=== PATIENT | male | born 1995 | race Hispanic/Latino ===

== ENCOUNTER 2018-10-31 09:31 | Emergency (ER) | payer OTHER ==
[2018-10-31 10:26] LABS: APPEARANCE,URINE Clear (CLEAR); BILIRUBIN,URINE Negative (NEGATIVE); COLOR,URINE Yellow (YELLOW); GLUCOSE, URINE (UA) Negative (NEGATIVE); KETONES,URINE Negative (NEGATIVE); LEUKOCYTE ESTERASE ,URINE Moderate (NEGATIVE); NITRATE,URINE Negative (NEGATIVE); OCCULT BLOOD,URINE Negative (NEGATIVE); PH,URINE 8.5 (5.0-8.0); PROTEIN,URINE Negative (NEGATIVE)
[2018-10-31 10:47] LABS: BACTERIA,URINE Rare /HPF (None Seen); MUCUS,URINE Few LPF (None Seen); RBC,URINE None Seen /HPF (0-1); SQUAMOUS EPITHELIAL CELL,UR Few /HPF (0-2)
== END 2018-10-31 11:05 | disposition home or self-care (01) ==
LOC: EDH 09:31
DX: M54.5 Low back pain (principal); Z87.442 Personal history of urinary calculi
CPT/HCPCS: 81001

== ENCOUNTER → 2019-02-19 | Outpatient (CLI) | payer OTHER | END | disposition home or self-care (01) | LOC: RAH 07:42 | PROVIDERS: ATTEND Family Medicine | DX: K76.0 Fatty (change of) liver, not elsewhere classified (principal); N20.0 Calculus of kidney; N28.1 Cyst of kidney, acquired; I70.90 Unspecified atherosclerosis | CPT/HCPCS: 74150 ==

== ENCOUNTER → 2019-03-05 | Outpatient (CLI) | payer OTHER ==
[2019-03-05 10:22] LABS: BASOPHILS % (AUTO) 0.8 % (0.0-5.0); EOSINOPHILS % (AUTO) 0.7 % (0.0-8.0); HEMATOCRIT 44.7 % (42-54); LYMPHOCYTES % (AUTO) 16.6 % (21.0-51.0); MEAN CORPUSCULAR HEMOGLOBIN 31.9 pg (27.0-33.0); MEAN CORPUSCULAR HGB CONC 34.7 g/dL (32.0-36.0); MEAN CORPUSCULAR VOLUME 91.9 fL (79-99); MONOCYTES % (AUTO) 9.4 % (3.0-13.0); NEUTROPHILS % (AUTO) 72.5 % (40.0-77.0); PLATELET COUNT (AUTO) 246 K/uL (130-400); RED BLOOD CELL COUNT(AUTO) 4.86 MIL/uL (4.50-6.20); RED CELL DISTRIBUTION WIDTH 13.3 % (11.0-15.5); WHITE BLOOD COUNT (AUTO) 10.8 K/uL (4.8-10.8)
[2019-03-05 10:23] LABS: APPEARANCE,URINE Clear (CLEAR); BILIRUBIN,URINE Negative (NEGATIVE); COLOR,URINE Yellow (YELLOW); GLUCOSE, URINE (UA) Negative (NEGATIVE); KETONES,URINE Negative (NEGATIVE); LEUKOCYTE ESTERASE ,URINE Moderate (NEGATIVE); NITRATE,URINE Negative (NEGATIVE); OCCULT BLOOD,URINE Negative (NEGATIVE); PH,URINE 7.5 (5.0-8.0); PROTEIN,URINE Negative (NEGATIVE)
[2019-03-05 10:29] LABS: HEMOGLOBIN A1C 5.1 % (4.0-6.0)
[2019-03-05 10:34] LABS: BACTERIA,URINE Few /HPF (None Seen); RBC,URINE None Seen /HPF (0-1); TRICHOMONAS,URINE Moderate /LPF (None Seen)
[2019-03-05 10:49] LABS: BILIRUBIN,TOTAL 0.6 mg/dL (0.2-1.0); CREATININE 0.8 mg/dL (0.5-1.5); POTASSIUM 4.7 mmol/L (3.5-5.1); THYROID STIMULATING HORMONE 0.99 uIU/mL (0.36-3.74); TOTAL PROTEIN, SERUM 7.9 g/dL (6.0-8.3)
== END | disposition home or self-care (01) ==
LOC: LAB 09:12
PROVIDERS: ATTEND Nurse Practitioner Adult Health
DX: Z00.00 Encounter for general adult medical examination without abnormal findings (principal)
CPT/HCPCS: 36415; 80053; 80061; 81001; 83036; 83690; 84443; 85025; 87486; 87797

== ENCOUNTER → 2019-03-19 | Outpatient (CLI) | payer OTHER | END | disposition home or self-care (01) | LOC: RAH 07:53 | PROVIDERS: ATTEND Internal Medicine Gastroenterology | DX: K76.0 Fatty (change of) liver, not elsewhere classified (principal); N28.1 Cyst of kidney, acquired | CPT/HCPCS: 76700 ==

== ENCOUNTER 2019-05-03 08:00 | Emergency (ER) | payer OTHER ==
[2019-05-03 08:35] LABS: RAPID GROUP A STREP NEGATIVE (NEGATIVE)
[2019-05-03] MEDS ORDERED: DiphenhydrAMINE HCL 50 MG/ML VIAL ONE (09:31)
[2019-05-03] MEDS ORDERED: KETOROLAC TROMETHAMINE 30MG/ML ONE (09:31)
[2019-05-03] MEDS ORDERED: AZITHROMYCIN 250 MG TABLET PO ONE (09:31)
[2019-05-03] MEDS ORDERED: SODIUM CHLORIDE 0.9% 1000ML 1,000 ML IV ONE (09:32)
== END 2019-05-03 10:31 | disposition home or self-care (01) ==
LOC: EDH 08:00
DX: J02.9 Acute pharyngitis, unspecified (principal); R50.9 Fever, unspecified; R19.7 Diarrhea, unspecified; Z87.442 Personal history of urinary calculi; Z72.0 Tobacco use
CPT/HCPCS: 87804 ×2; 87880; 96361; 96374; 96375; 99284; J1200; J1885; J7030

== ENCOUNTER 2019-10-24 00:19 | Emergency (ER) | payer OTHER ==
[2019-10-24] MEDS ORDERED: DEXAMETHASONE SOD PHOSPHATE 10MG/ML 1ML VIAL ONE (00:48)
[2019-10-24] MEDS ORDERED: LIDOCAINE HCL-MPF 1% 2ML VIAL ONE (00:48)
[2019-10-24] MEDS ORDERED: CEFTRIAXONE SODIUM 1 GM ONE (00:48)
== END 2019-10-24 01:29 | disposition home or self-care (01) ==
LOC: EDH 00:19
DX: J02.9 Acute pharyngitis, unspecified (principal)
CPT/HCPCS: 96372 ×2; 99284; J0696; J1100; J3490

== ENCOUNTER 2019-11-15 15:52 | Emergency (ER) | payer OTHER ==
[2019-11-15 16:23] LABS: APPEARANCE,URINE SL CLOUDY (CLEAR); BILIRUBIN,URINE NEGATIVE (NEGATIVE); COLOR,URINE YELLOW (YELLOW); GLUCOSE, URINE (UA) NEGATIVE (NEGATIVE); KETONES,URINE NEGATIVE (NEGATIVE); LEUKOCYTE ESTERASE ,URINE NEGATIVE (NEGATIVE); NITRATE,URINE NEGATIVE (NEGATIVE); OCCULT BLOOD,URINE NEGATIVE (NEGATIVE); PH,URINE 7.5 (5.0-8.0); PROTEIN,URINE NEGATIVE (NEGATIVE)
[2019-11-15 16:40] LABS: AMORPHOUS SEDIMENT,UR Many /LPF (None Seen); BACTERIA,URINE Few /HPF (None Seen); MUCUS,URINE Moderate LPF (None Seen); SQUAMOUS EPITHELIAL CELL,UR Moderate /HPF (0-2)
[2019-11-15 16:50] LABS: AMPHET/METH SCREEN,URINE NEGATIVE (NEGATIVE); BARBITURATE SCREEN, URINE NEGATIVE (NEGATIVE); BENZODIAZEPINES SCREEN,URINE POSITIVE (NEGATIVE); CANNABINOID SCREEN,URINE POSITIVE (NEGATIVE); COCAINE SCREEN,URINE NEGATIVE (NEGATIVE); OPIATE SCREEN,URINE NEGATIVE (NEGATIVE); PHENCYCLIDINE SCREEN,URINE NEGATIVE (NEGATIVE)
[2019-11-15] MEDS ORDERED: SODIUM CHLORIDE 0.9% 1000ML 1,000 ML IV ONE (17:44)
[2019-11-15 17:50] LABS: BASOPHILS % (AUTO) 0.4 % (0.0-5.0); EOSINOPHILS % (AUTO) 1.1 % (0.0-8.0); HEMATOCRIT 42.2 % (42-54); LYMPHOCYTES % (AUTO) 20.7 % (21.0-51.0); MEAN CORPUSCULAR HEMOGLOBIN 31.6 pg (27.0-33.0); MEAN CORPUSCULAR HGB CONC 35.5 g/dL (32.0-36.0); MEAN CORPUSCULAR VOLUME 88.8 fL (79-99); NEUTROPHILS % (AUTO) 67.4 % (40.0-77.0); PLATELET COUNT (AUTO) 268 K/uL (130-400); RED BLOOD CELL COUNT(AUTO) 4.75 MIL/uL (4.50-6.20); RED CELL DISTRIBUTION WIDTH 12.2 % (11.0-15.5); WHITE BLOOD COUNT (AUTO) 10.8 K/uL (4.8-10.8)
[2019-11-15 18:03] LABS: CARBON DIOXIDE 29 mmol/L (21-32); CHLORIDE 100 mmol/L (101-111); CREATININE 0.7 mg/dL (0.5-1.5); GLOMERULAR FILTR. RATE CALC 146 mL/min (>60); GLUCOSE,RANDOM 101 mg/dL (70-105); POTASSIUM 3.6 mmol/L (3.5-5.1); SODIUM SERUM 136 mmol/L (136-145); UREA NITROGEN, BLOOD 13 mg/dL (7-18)
[2019-11-15 18:08] LABS: ALANINE AMINOTRANSFERASE 43 U/L (12-78); ALCOHOL, BLOOD < 3 mg/dL (0-10); ASPARTATE AMINOTRANSFERASE 26 U/L (10-37); BILIRUBIN,TOTAL 0.9 mg/dL (0.2-1.0); CREATINE KINASE, TOTAL 160 U/L (21-232); TOTAL PROTEIN, SERUM 7.9 g/dL (6.0-8.3)
== END 2019-11-15 20:05 | disposition home or self-care (01) ==
LOC: EDH 15:52
DX: G40.89 Other seizures (principal); F12.10 Cannabis abuse, uncomplicated; T42.4X5A Adverse effect of benzodiazepines, initial encounter; Y92.89 Other specified places as the place of occurrence of the external cause
CPT/HCPCS: 36415; 71045; 80053; 80305; 81001; 82550; 84484; 85025; 93005; 99285; G0480; J7030

== ENCOUNTER 2021-07-17 13:01 | Emergency (ER) | payer OTHER ==
[~2021-07-17] VITALS: Ht 180.3 cm; Wt 102.1 kg
[2021-07-17 13:04] VITALS: BP 132/87
[2021-07-17] MEDS ORDERED: IBUPROFEN 600 MG TABLET PO STA (14:36)
[2021-07-17] MEDS ORDERED: TETANUS/DIPHTHERIA TOXOID [ADULT] 0.5 ML VIAL IM STA (14:36)
[2021-07-17] MEDS ORDERED: AMOX/CLAV 875/125MG TAB PO STA (14:36)
[2021-07-17] MEDS ORDERED: IBUP-2088 PO (14:45)
[2021-07-17] MEDS ORDERED: AMOX-429 PO (14:45)
== END 2021-07-17 14:56 | disposition home or self-care (01) ==
LOC: EDH 13:01
DX: S61.551A Open bite of right wrist, initial encounter (principal); W54.0XXA Bitten by dog, initial encounter; Z79.1 Long term (current) use of non-steroidal anti-inflammatories (NSAID); Y93.89 Activity, other specified; Y92.89 Other specified places as the place of occurrence of the external cause; Y99.8 Other external cause status
CPT/HCPCS: 90471; 90714

== ENCOUNTER → 2022-10-23 | Emergency (ER) | payer OTHER ==
[~2022-10-23] VITALS: Ht 180.3 cm; Wt 99.8 kg
[~2022-10-23] MED LIST: AMOX-429 PO; IBUP-2088 PO
[2022-10-23 19:00] VITALS: BP 128/85
== END | disposition left against medical advice (07) ==
LOC: EDH 18:24
DX: R51.9 Headache, unspecified (principal); Z53.21 Procedure and treatment not carried out due to patient leaving prior to being seen by health care provider

== ENCOUNTER 2025-02-06 02:34 | Emergency (ER) | payer SELFPAY ==
[~2025-02-06] VITALS: Ht 180.3 cm; Wt 104.3 kg
[2025-02-06] MEDS ORDERED: PRED50TA2 PO (03:13)
[2025-02-06] MEDS ORDERED: CYCL10TA16 PO (03:13)
--- NOTE | 2025-02-06 03:13 | ERN ---
General Chief Complaint: Low Back Pain/Injury Stated Complaint: BACK PAIN Time Seen by MD: 02:42 Source: patient History of Present Illness Initial Comments Patient is a 29-year-old male who has a radiculopathy diagnosed by MRI at L5 L4- S1. He will be seeing a neurosurgeon in the next week or so. He was given tramadol and he said it was effective but for some reason he stopped taking it and he is back today with worsening pain in his left lower leg. The pain starts in his posterior thigh and migrates down to his knee down his calf to the sole of his foot until his toe. He reports no trauma he reports no swelling no fevers no chills no GI problems no urinary problems. Allergies: Coded Allergies: No Known Drug Allergies (Unverified Allergy, Unknown, 10/24/19) Home Meds Active Scripts Ibuprofen (Motrin/Advil) 600 Mg Tab, 600 MG PO Q6HPRN, #20 TAB Prov:DENITA TO NP 07/17/21 Amoxicillin/Potassium Clav (Augmentin 875-125 Tablet) 1 Each Tablet, 1 TAB PO BID for 10 Days, #20 TAB 0 Refills Prov:DENITA TO NP 07/17/21 Past Medical History Past Medical History: Seizure, Other Medical History Other: History of seizures. seizure-free for the last 2 to 3 years. sciatica Past Surgical History: None Family History Family History: Negative Social History Social History: Negative, Lives with family Constitutional: (-) chills, (-) diaphoresis, (-) fever, (-) malaise, (-) weakness, (-) other documentation EENTM: (-) eye pain, (-) blurred vision, (-) tearing, (-) double vision, (-) ear pain, (-) ear discharge, (-) nose pain, (-) nose congestion, (-) throat pain, (-) Throat swelling, (-) mouth pain, (-) tooth pain, (-) mouth swelling, (-) other documentation Respiratory: (-) cough, (-) orthopnea, (-) short of breath, (-) stridor, (-) wheezing, (-) other documentation Cardiovascular: (-) chest pain, (-) edema, (-) palpitations, (-) syncope, (-) dyspnea on exertion, (-) other documentation Gastrointestinal/Abdominal: (-) nausea, (-) vomiting, (-) diarrhea, (-) abdominal pain, (-) abdominal distention, (-) constipation, (-) rectal bleeding, (-) dark stool/melena, (-) other documentation Musculoskeletal: (+) back pain Skin: (-) laceration, (-) contusion, (-) abrasion, (-) abscess, (-) rash, (-) change in color, (-) change in hair, (-) change in nails, (-) diaphoresis, (-) dryness, (-) other documentation Neuro: (-) altered mental status, (-) headache, (-) syncope, (-) paralysis, (-) numbness, (-) seizure, (-) pre-existing deficit, (-) tremors, (-) weakness, (-) dizziness, (-) slurred speech, (-) vertigo, (-) other documentation Physical Exam General Appearance: (+) mild distress Orientation: (+) oriented x 3 Head/Face Trauma: No Eye: bilateral eye normal inspection, bilateral eye PERRL, bilateral eye EOMI Ear, Nose, Throat: (+) hearing grossly normal, (+) normal ENT inspection, (+) moist mucous membraine Neck: (+) normal inspection, (+) supple, (+) full range of motion Respiratory: (+) chest non-tender, (+) lungs clear, (+) well ventilated Heart: (+) regular, (+) no gallop Extremities: (+) normal range of motion Extremities Comment Passive leg raise with toe flexion exacerbates his pain. He does not have a Bhardwaj's cyst on his knee. MDM Patient's exam and history is consistent with sciatica. He has already been worked up with a an MRI and will be seeing a neurosurgeon in the near future. I will not order any labs or studies. I will simply provide patient with steroids to assist with his worsening sciatica and he will follow up with his primary care doctor or his neurosurgeon. ED Course Vital Signs Date Time Temp Pulse Resp B/P (MAP) Pulse Ox O2 Delivery O2 Flow Rate FiO2 02/06/25 02:36 98.1 60 18 117/89 100 Room Air DX & DISP Disposition: Discharge Departure Impression: Primary Impression: Sciatica associated with disorder of lumbar spine Condition: Stable Scripts Cyclobenzaprine HCl (Flexeril) 10 Mg Tab 10 MG PO TID for muscle sstiffness, #14 TAB 0 Refills Prov: SIMONE BAEZA MD 02/06/25 Prednisone (Prednisone) 50 Mg Tablet 50 MG PO DAILY for sciatica for 5 Days, #5 TAB 0 Refills Prov: SIMONE BAEZA MD 02/06/25 Referrals: BRIANNA LAKE NP (PCP) SIMONE BAEZA MD Feb 06, 2025 03:13
[2025-02-06] MEDS: CYCLOBENZAPRINE HCL 10 MG TABLET PO ONE (03:31)
[2025-02-06] MEDS: ketOROlac 30MG VIAL (30MG/ML) IM ONE (03:31)
[2025-02-06 03:45] VITALS: BP 124/78; PULSE 64; RESP 18; TEMP 98.4; O2SAT 98
== END 2025-02-06 03:44 | disposition home or self-care (01) ==
LOC: EDH 02:34
DX: M54.42 Lumbago with sciatica, left side (principal); Z79.899 Other long term (current) drug therapy
CPT/HCPCS: 99283; 96372; J1885